=== PATIENT | female | born 1965 | race Caucasian/White ===

== ENCOUNTER 2019-02-04 14:00 | Emergency (ER) | payer BC, MEDICAID, OTHER ==
[2019-02-04 16:06] VITALS: BP 109/73
--- NOTE | 2019-02-05 07:11 | ED ---
Upper Extremity Pain - HPI Summary HPI Summary: Pt. is a 53 y.o male who presents to the ER for evaluation of a right shoulder injury that occurred one month ago. Pt. states she tripped and fell a month ago and injuried right shoulder. Pt. states she was hoping it would improve and has not yet been seen for injury. Pt. denies neck pain, numbness, tingling. Sxs are mild in severity. Movement makes sxs worse. Nothing makes sxs better. - History of Current Complaint Chief Complaint: EDExtremityUpper Stated Complaint: FALL-RIGHT SHOULDER AND ARM PAIN PER PT Time Seen by Provider: 02/04/19 14:41 Hx Obtained From: Patient - Allergies/Home Medications Allergies/Adverse Reactions: Allergies Allergy/AdvReac Type Severity Reaction Status Date / Time MS Penicillins [PCN] Allergy Severe Anaphylatic Verified 04/07/13 18:52 Shock MS Aspirin [Aspirin] Allergy Intermediate Hives Verified 04/07/13 18:52 MS Ibuprofen [Ibuprofen] Allergy Intermediate Hives Verified 04/07/13 18:52 MS Iodinated Contrast Media Allergy Intermediate Swelling Verified 04/07/13 18: 52 [CONTRAST DYE] steroids Allergy Intermediate See Comment Uncoded 09/25/12 22:01 Home Medications: Home Medications Gabapentin 600 mg PO DAILY 02/04/19 [History Confirmed 02/04/19] Methocarbamol 500 mg PO TID 02/04/19 [History Confirmed 02/04/19] Oxycodone HCl/Acetaminophen [Percocet] 1 tab PO Q6HR PRN 02/04/19 [History Confirmed 02/04/19] PMH/Surg Hx/FS Hx/Imm Hx Previously Healthy: Yes Endocrine/Hematology History: Reports: Hx Thyroid Disease Denies: Hx Diabetes Cardiovascular History: Reports: Other Cardiovascular Problems/Disorders - Hx of arrhythmia Denies: Hx Hypertension Respiratory History: Reports: Hx Asthma - congenital, Other Respiratory Problems /Disorders - pneumonia Denies: Hx Chronic Obstructive Pulmonary Disease (COPD) GI History: Denies: Hx Ulcer - Surgical History Surgery Procedure, Year, and Place: thyroidectomy 2006, hysterectomy, cholecystectomy, appendectomy Infectious Disease History: No Infectious Disease History: Denies: Hx Hepatitis, Hx Human Immunodeficiency Virus (HIV), Traveled Outside the [place] in Last 30 Days - Family History Known Family History: Positive: Cardiac Disease - Angioplasty and coronary artery bypass graft , Non-Contributory - Social History Occupation: Unemployed Lives: With Family Alcohol Use: Occasionally Substance Use Type: Reports: None Smoking Status (MU): Current Every Day Smoker Review of Systems Positive: Other - right shoulder pain Skin: Negative Neurological: Negative Negative: Weakness, Paresthesia, Numbness All Other Systems Reviewed And Are Negative: Yes Physical Exam Triage Information Reviewed: Yes Vital Signs On Initial Exam: Initial Vitals Temp Pulse Resp BP Pulse Ox 96.9 F 120 18 92/68 95 02/04/19 14:06 02/04/19 14:06 02/04/19 14:06 02/04/19 14:06 02/04/19 14:06 Vital Signs Reviewed: Yes Appearance: Positive: Well-Appearing - Pt. sitting on bed in NAD. Skin: Positive: Warm, Dry Head/Face: Positive: Normal Head/Face Inspection Eyes: Positive: Normal, EOMI, ADAMA Neck: Positive: Supple Musculoskeletal: Positive: Other - Diffue tenderness to right shoulder. Good radial pulse. Significant pain with ROM. Unable to abduct arm secondary to pain. No erythema or increased warmth. Neurological: Positive: Normal, CN Intact II-III Psychiatric: Positive: Affect/Mood Appropriate Procedures - Sedation Patient Received Moderate/Deep Sedation with Procedure: No Diagnostics - Vital Signs Vital Signs Temp Pulse Resp BP Pulse Ox 02/04/19 16:05 97.7 F 68 18 109/73 96 02/04/19 14:06 96.9 F 120 18 92/68 95 - Laboratory Lab Statement: Any lab studies that have been ordered have been reviewed, and results considered in the medical decision making process. Course/Dx - Course Course Of Treatment: Xray shows chronic changes per radiology. Suspect rotator cuff injury. Splint placed for comfort. Advised to continue gentle ROM. Can continue chronic pain medication. Pt. to call ortho clinic tomorrow for close f.u apt. for further eval. pt. understands and agrees with plan. - Diagnoses Differential Diagnosis/HQI/PQRI: Positive: Fracture (Closed), Strain, Sprain Provider Diagnoses: Shoulder injury Discharge ED - Sign-Out/Discharge Documenting (check all that apply): Patient Departure - Discharge Plan Condition: Good Disposition: HOME Patient Education Materials: Shoulder Sprain (ED) Referrals: [facility] [Outside] Kailee Davis MD [Medical Doctor] - Additional Instructions: Call the orthopedic clinic today to schedule a close follow up appointment for further care Wear sling for comfort Ibuprofen for pain as directed Return to ER if symptoms change or worsen - Billing Disposition and Condition Condition: GOOD Disposition: Home - Attestation Statements Provider Attestation: I was available for consultation for this patient. I did not evaluate the patient, or participate in any medical decision making or disposition decisions unless I am specifically named in the chart as having consulted on the patient. If I have consulted on the patient, please see my own ED note on the patient encounter. Cachorro Treviño MD
== END 2019-02-04 16:00 | disposition home or self-care (01) ==
LOC: ED 14:00
DX: S49.91XA Unspecified injury of right shoulder and upper arm, initial encounter (principal); W01.0XXA Fall on same level from slipping, tripping and stumbling without subsequent striking against object, initial encounter; Y92.9 Unspecified place or not applicable; M19.011 Primary osteoarthritis, right shoulder; M75.91 Shoulder lesion, unspecified, right shoulder; Z88.0 Allergy status to penicillin; Z88.8 Allergy status to other drugs, medicaments and biological substances; Z88.6 Allergy status to analgesic agent; Z91.041 Radiographic dye allergy status; F17.200 Nicotine dependence, unspecified, uncomplicated
CPT/HCPCS: 99282